=== PATIENT | female | born 1990 | race Caucasian/White ===

== ENCOUNTER 2017-09-10 17:22 | Emergency (ER) | payer OTHER ==
[2017-09-10 17:46] VITALS: BP 120/74
[2017-09-10] MEDS ORDERED: NAPROXEN 250 MG TABLET PO ONE (18:27)
--- NOTE | 2017-09-10 18:40 | ER Document Report ---
ED General - General Chief Complaint: Pain All Over Stated Complaint: CHEST PAIN/HEADACHE TRAVEL OUTSIDE OF THE [place] IN LAST 30 DAYS: No - HPI Notes: 27-year-old female who presents with chest pain, body aches, not feeling well. Sharp achy chest pain, nonradiating. Minimal if any cough. No recent travel, no recent antibiotic use. She has felt some chills and body aches. No rashes. No vomiting. No headache. No tick bites. Gradual onset. No other modifying factors, no other associated symptoms, no other provocative or palliative factors.. Over 2 days. Past Medical History - Social History Smoking Status: Smoker,Current Status Unk Family History: Reviewed & Not Pertinent - Medical History Medical History: Negative - Past Medical History Cardiac Medical History: Reports: None Review of Systems - Review of Systems Notes: Review of systems as in history of present illness, otherwise no significant headache, chest pain, abdominal pain. Physical Exam - Vital signs Vitals: Temp Pulse Resp BP Pulse Ox 98.7 F 88 16 120/74 98 09/10/17 17:44 09/10/17 17:44 09/10/17 17:44 09/10/17 17:44 09/10/17 17:44 - Notes Notes: General: Well developed . HEENT: Normocephalic, atraumatic. Pupils equal round reactive to light. No JVD. Chest: No trauma. Respiratory: Good air exchange, normal excursion. Cardiac: Regular rhythm. No murmurs or gallops. Abdomen: Soft, benign. Nondistended. Nontender. Back: No asymmetry or gross abnormality. Motor: Grossly normal power and tone. Neurologic: Alert, nonfocal. Cranial nerves II-12 are intact. Sensation intact. Vascular: Well perfused. Normal peripheral pulses. Skin: No petechiae or purpura. Course - Re-evaluation Re-evalutation: 09/10/17 18:39 Well-appearing female with symptoms to suggest some type of viral illness or infection. Consider occult pneumonia. No other URI symptoms. I think pulmonary embolism is unlikely. She is low risk and PE RC negative, would not pursue or rule out. Doubt ACS. Plan to proceed with chest x-ray, NSAIDs, UPT and reassess. 09/10/17 19:35 Note I went to reevaluate the patient and she apparently has eloped and left without completing service. - Vital Signs Vital signs: Temp Pulse Resp BP Pulse Ox 98.7 F 88 16 120/74 98 09/10/17 17:44 09/10/17 17:44 09/10/17 17:44 09/10/17 17:44 09/10/17 17:44 Discharge - Discharge Clinical Impression: Chest pain Qualifiers: Chest pain type: unspecified Qualified Code(s): R07.9 - Chest pain, unspecified Condition: Good Disposition: ELOPED
== END 2017-09-10 19:06 | disposition left against medical advice (07) ==
LOC: ER 17:22
DX: R07.9 Chest pain, unspecified (principal); R68.83 Chills (without fever); Z53.20 Procedure and treatment not carried out because of patient's decision for unspecified reasons
CPT/HCPCS: 99281